=== PATIENT | female | born 1985 | race Caucasian/White ===

== ENCOUNTER 2024-09-18 16:25 | Emergency (ER) | payer BC, OTHER ==
[2024-09-18] MEDS: Alum Hydrox/Mag Hydrox/Simeth 15 ML, Lidocaine 2% 5 ML PO ONE (18:58)
== END 2024-09-18 20:10 | disposition home or self-care (01) ==
LOC: MW.ED 16:25
DX: R09.A2 Foreign body sensation, throat (principal); R59.0 Localized enlarged lymph nodes; E03.9 Hypothyroidism, unspecified; Z79.899 Other long term (current) drug therapy; Z88.2 Allergy status to sulfonamides
CPT/HCPCS: 87651; 96374; 99284; A9270; J1100; 99283